=== PATIENT | female | born 1950 | race Caucasian/White ===

== ENCOUNTER 2019-07-30 18:39 | Inpatient (IN) | payer OTHER, BC ==
[~2019-07-30] VITALS: Ht 152.4 cm; Wt 51.3 kg
--- NOTE | 2019-07-31 06:18 | NUR ---
ARRIVED ON SENIOR [facility]AVIOR UNIT, 5S ON 07/30/19 @ 20:15 ACCOMPANIED BY EMS PERSONNEL X 2. ALERT AND ORIENTED X 3. KNOWS OWN NAME AND , KNOWS THIS IS A HOSPITAL, BUT GIVES [facility] THAT SHE TRANSFERRED FROM THE NAME OF THE FACILITY. REORIENTED TO UNIT AND HOSPITAL. KNOWS NAME OF PRESIDENT. VS 123/69 87 18 98.4 93% HEIGHTH 5'0" WEIGHT 113.2. HEART RATE AND RHYTHM REGULAR, S1S2 NOTED. LUNG SOUNDS EQUAL BILATERAL, ABDOMINAL SOUNDS ACTIVE X 4 Q. HAND STRENGTH EQUAL, MOBILITIY OF UPPER EXTREMITIES DEMONSTRATES AN APPROPRIATE RANGE OF MOTION. SKIN ON UPPPER TORSO SOFT, WARM AND DRY. BACK SKIN IS INTACT, BACK OF LEGS ARE INTACT. SKIN ON BUTTOCKS INTACT. HEELS ARE DRY, BUT NOT BOGGY OR CRACKED. TOES PINK WITH A LESS THAN 3 SEC CAP REFILL. DEMONSTRATES ADEQUATE STRENGTH IN PUSH PULL OF FEET. STATES THAT FEELS TOO WEAK TO STAND TO TRANSFER TO TOILET. AN HOUR LATER, GOT UP FROM HER BED AND AMBULATED TO THE TOILET. C/O PALLATE FEELS LIKE IT IS GOING AROUND. SAYS HAS LOTS GOING ON, BUT CANNOT STATE WHAT THE PROBLEM IS WITH HER MOUTH. SHE REPORTS THAT SHE ATE CHEESE PUFFS AND CONTINUES TO HAVE A FEELING THAT SOMETHING IS THERE. REJECTS OFFER TO ASSIST HER IN BRUSHING HER TEETH. ASKS FOR MELATONIN REPEATEDLY. DENIES THAT SHE INTENDED TO KILL HERSELF WHEN SHE TOOK 5 AMBIEN TABLETS. STATES THAT SHE TOOK THREE AND FORGOT THAT SHE HAD TAKEN THEM. DENIES HOMOCIDAL IDEATION. DENIES HALLUCINATIONS, AUDABLE OR VISUAL. SETTLED INTO BED, HAD TROUBLE FALLING ASLEEP, HOWEVER DID SLEEP AND GOT 7.4 HOURS OF SLEEP OVERNIGHT. BED IN LOW POSITION, BED ALARM SET WITH 3 HAND RAILS UP. WILL CONTINUE TO MONITOR Q 12 MINUTES FOR PATIENT SAFETY.
[2019-07-31 09:00] VITALS: BP 111/58
--- NOTE | 2019-07-31 10:38 | NUR ---
Sitting up in bed. Sleepy and calm. No response to verbal questions. Alert to name only. No speech/behavior suggestive of SI/HI. Compliant with meds, took crushed in apple sauce. Obeys simple commands. Able to help with transfer to recliner, required one person, but then 2 to assist with pulling up pants. Breath sounds clear t/o. Reg HR auscultated. Color pink with brisk capillary refill and palpable peripheral pulses, feet cool to touch. No urine in brief. Medium soft, light brown stool per brief. Active bowel sounds over soft, rounded abdomen. Socks placed on feet and wheeled to dining room for breakfast.
--- NOTE | 2019-07-31 13:07 | NUR ---
SW met with pt while she was laying in bed. Pt reported that she took 3 sleeping pills by accident. Pt denies any SI at this time. Pt has not HX of inpt psych or mental health concerns or treatment.
--- NOTE | 2019-07-31 14:11 | NUR ---
1100 Alert and orientated X 3. States she was brought to [facility] because she "mistakenly" took 3 ambien. Denies SI/HI and states she has never had SI during her lifetime. Calm and compliant with meds. Breath sounds clear t/o. Reg HR auscultated. Color pink with brisk capillary refill and palpable peripheral pulses. Independent with voiding. Active bowel sounds over soft, flat abdomen. States she had small BM this AM but still feels "full". Smear of BM on pad. Needed encouragement to come out to dining room for breakfast and lunch. Reg gait. States she does not want gown but prefers to stay in paper top. Toiletry items provided.
[2019-07-31 19:39] VITALS: BP 103/63
[2019-07-31] MEDS ORDERED: SUPER THERAVIT1 EACH PO (19:48)
[2019-07-31] MEDS ORDERED: AMBIEN 10 MG TA10 MG PO (19:48)
--- NOTE | 2019-07-31 20:01 | NUR ---
Assumed care at change of shift. Pt. laying in bed and was cooperative with assessment. Pt. currently denies pain but does state that she feels like she has spider webs on her face. She was reassured that there were not spiders or webs on her face at this time. She appears calm and is oriented x 3. She requestes something to help her sleep tonight.
[2019-07-31 21:46] VITALS: BP 103/63
--- NOTE | 2019-08-01 06:41 | NUR ---
PT. SLEPT 6.6 HRS. THROUGH REPLENISHER. SHE MADE SEVERAL COMPLAINTS REGARDING HER ROOMMATE MAKING TOO MUCH NOISE. SHE AMBULATED TO NURSES STATION TWICE TO MAKE VERBAL COMPLAINT
[2019-08-01 07:26] VITALS: BP 120/69
--- NOTE | 2019-08-01 14:24 | NUR ---
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 STATES OD ON AMBIEN WAS "JUST AN ACCIDENT-I WAS REALLY FRUSTRATED AND I COULDN'T SLEEP" DENIES CURRENT SI/SH/HI. DESCRIBES MOOD "PRETTY CRAPPY" BECAUSE I'M HERE. HAS BEEN WITHDRAWN TO ROOM. BLUNTED AFFECT. DOES COME OUT FOR MEALS WITHOUT PROMPTING.DENIES C/O PAIN/DISCOMFORT. GAIT STEADY WITHOUT ASSISTIVE DEVICES.
[2019-08-01 19:36] VITALS: BP 114/62
--- NOTE | 2019-08-02 07:04 | NUR ---
ASSUMED CARE ON O4.29.20 @ 1900. SEATED IN DAYROOM. SPEAKS TO PEERS AND TO STAFF WHEN ADDRESSED. COMPLIANT WITH MEDICATIONS. DESCRIBES DEPRESSION A 7/10, ANXIETY AN 8/10. REPORTS PAIN IN THE MOUTH A 8/10. TYLENOL GIVEN FOR GENERAL PAIN OF 5/10. TRAZADONE 50 GIVEN FOR INSOMNIA. SLEPT 11 HOURS.
[2019-08-02 07:30] VITALS: BP 96/65
--- NOTE | 2019-08-02 12:02 | NUR ---
0840 ASSUMED CARE OF PATIENT. 1200 PATIENT TO RADIOLOGY FOR VIDEO SWALLOW. PATIENT HAVING DIFFICULTY SWALLOWING. WILL CONTINUE TO OBSERVE.
--- NOTE | 2019-08-02 15:53 | NUR ---
ZAFAR and Dr price spoke with pt's spouse Jeremie [phone] . Jeremie reported that he did not think his spouse was at risk for self harm and was confident to bossman eher home. D/C was set up for 08/02 at 10 am. This was reported to nursing. Dr Price is sending a referral for cognitive tersting to be completed outpt.
[2019-08-02 19:14] VITALS: BP 114/47
[2019-08-02] MEDS ORDERED: TRAZODONE HCL100 MG PO (20:16)
[2019-08-03 02:03] VITALS: BP 114/47
--- NOTE | 2019-08-03 06:28 | NUR ---
Assumed care on 08/02/19 @ 1900, in bed, awake alert and oriented x3-4. Cooperated with assessment, wnl for self. Compliant with medications. indicated that she was not happy with the soft food diet, calling it a liquid diet. Denies SI, HI, AH, VH. Slept well throughout the night total of 8 hours.
[2019-08-03 08:55] VITALS: BP 114/47
--- NOTE | 2019-08-03 09:00 | NUR ---
0700 ASSUMED CARE OF PATIENT. PATIENT TO DAYROOM. COMMUNICATING WELL WITH OTHER PATIENTS. PATIENT EATING BREAKFAST. WILL CONTINUE TO OBSERVE.
[2019-08-03 10:43] VITALS: BP 102/62
--- NOTE | 2019-08-03 10:46 | NUR ---
0830 PATIENT LUNG SOUNDS CLEAR, BS ACTIVE, NO C/O PAIN, PATIENT READY TO GO HOME. 0945 CLOTHES GIVEN TO PATIENT, MISSING ONE SHOE UNABLE TO FIND IN LOCKER. WILL CONTINUE TO WATCH FOR SHOE AND NOTIFY PATIENT. PATIENT GIVEN DISCHARGE INSTRUCTIONS PATIENT VOICED UNDERSTANDING. WAITING FOR TO BALL WINDER.
== END 2019-08-03 10:15 | disposition home or self-care (01) | DRG 881 ==
LOC: SBH
PROVIDERS: ADMIT Psychiatry & Neurology Psychiatry
DX: F32.9 Major depressive disorder, single episode, unspecified (principal); T42.6X2A Poisoning by other antiepileptic and sedative-hypnotic drugs, intentional self-harm, initial encounter; R45.851 Suicidal ideations; T65.91XA Toxic effect of unspecified substance, accidental (unintentional), initial encounter; G47.00 Insomnia, unspecified; F41.9 Anxiety disorder, unspecified; K59.00 Constipation, unspecified; G43.909 Migraine, unspecified, not intractable, without status migrainosus; Z91.013 Allergy to seafood; Z90.49 Acquired absence of other specified parts of digestive tract; Y92.89 Other specified places as the place of occurrence of the external cause
CPT/HCPCS: 10880